=== PATIENT | male | born 1985 | race Caucasian/White ===

== ENCOUNTER 2022-02-24 15:30 | Outpatient (RCR) | payer MEDICAID, SELFPAY ==
--- NOTE | 2022-02-04 16:41 | HP.OTEVAL ---
Patient's Visit Information LAZ WOODS is a 36 year old M, referred to Occupational Therapy by LAURI TAVERAS, with a diagnosis of Lymphedema LE. Date of Evaluation: 02/04/22 Occupational Therapist: Mary Rivero, MURPHY/Gustavo, CHT - Subjective This 36 year old male was seen for OT eval with dx of lymphedema in right LE- pt states he developed swelling in his right LE about two years ago- pt states he has wears compression socks ( britney compression socks works the best for him) pt states he was given another medical compression sock but it was not helpful- pt states he was seen by a in [place] and was told he can not do much for his Leg- pt states he has had cellulitis about 4-5 months ago- was treated ER and given antibiotics- pt does not work-. pt states he did have a compression pump in the past but does not have it now due to his housing arrangement. - Objective Concerns: asked if this dx is something he could get disability for- - Lymphedema (Circumferential Measure) Mid-foot: right 26cm left 25cm Ankle: right 29cm left 27cm Lower calf: right 32.5 left 26cm Largest calf: rigth 43cm left 40cm Below knee: right 38cm left 37cm - Goals Demonstrate a 20% reduction in edema by d/c: Yes Demonstrate adequate knowledge of self-massage by 2nd week: Yes Demonstrate adequate knowledge skin care/prec by 2nd week: Yes Demonstrate adequate knowledge therapeutic exercises by d/c: Yes Select approp compression garment w/donning/care/wear by d/c: Yes Voice need to replace compression garment every 4-6mo by dc: Yes - Rehabilitation General Assessment: Pt arrives with copper fit compression sock on- demo with edema of right LE and demo need for skilled OT services 2-3 visits to ed. pt on life long mtg. of lymphedema. Today therapist ed. pt on skin care, precautions, lymph. stimulation exercise, self manual massage brien. and need of compression sock. Pt was given handout on exercise and demo. understanding- therapist advised compression sock 20-30 mmHg was appropriate pt states he did get order the person who went to pick them up was told that the pt. needs to get his leg measured- and was told they would cost about $50 dollars- pt has not went back to get measured- asked pt to call insurance and see if he can submit for reimbursement- notified pt that a lot of insurances do not pay for compression socks- due to the length of swelling and pts recent cellulitis about 4- 5 months ago pt would benefit from compression pumps. Rehabilitation Potential: Good - Anticipated Interventions Education re Diagnosis, Manual Lymph Drainage, Education re Life-long lymphedema Management, Education re Skin Care and Precautions, Education re Self Massage Techniques, Education re Correct Donning Tech,Care&Wearing Sched Comp Garments, Home Program - Visit Plan TEXT: Thank you for the opportunity to evaluate your patient. For Medicare and Medicare HMO plans, please review the plan of care and approve it. It will need to be FAXED BACK to us at [phone] for Medicare purposes. Please let me know if there are questions or concerns regarding this plan of care. Physician Signature: Date:
--- NOTE | 2022-02-04 16:42 | HP.OTEVAL ---
Patient's Visit Information LAZ WOODS is a 36 year old M, referred to Occupational Therapy by LAURI TAVERAS, with a diagnosis of Lymphedema LE. Date of Evaluation: 02/04/22 Occupational Therapist: Mary Rivero, MURPHY/Gustavo, CHT - Subjective This 36 year old male was seen for OT eval with dx of lymphedema in right LE- pt states he developed swelling in his right LE about two years ago- pt states he has wears compression socks ( britney compression socks works the best for him) pt states he was given another medical compression sock but it was not helpful- pt states he was seen by a in [place] and was told he can not do much for his Leg- pt states he has had cellulitis about 4-5 months ago- was treated ER and given antibiotics- pt does not work-. pt states he did have a compression pump in the past but does not have it now due to his housing arrangement. - Lymphedema (Circumferential Measure) Mid-foot: right 26cm left 25cm Ankle: right 29cm left 27cm Lower calf: right 32.5 left 26cm Largest calf: rigth 43cm left 40cm Below knee: right 38cm left 37cm - Lower Limb Functional Index Lower Extremity Functional Score: 76 - Goals Demonstrate a 20% reduction in edema by d/c: Yes Demonstrate adequate knowledge of self-massage by 2nd week: Yes Demonstrate adequate knowledge skin care/prec by 2nd week: Yes Demonstrate adequate knowledge therapeutic exercises by d/c: Yes Select approp compression garment w/donning/care/wear by d/c: Yes Voice need to replace compression garment every 4-6mo by dc: Yes - Rehabilitation General Assessment: Pt arrives with copper fit compression sock on- demo with edema of right LE and demo need for skilled OT services 2-3 visits to ed. pt on life long mtg. of lymphedema. Today therapist ed. pt on skin care, precautions, lymph. stimulation exercise, self manual massage brien. and need of compression sock. Pt was given handout on exercise and demo. understanding- therapist advised compression sock 20-30 mmHg was appropriate pt states he did get order the person who went to pick them up was told that the pt. needs to get his leg measured- and was told they would cost about $50 dollars- pt has not went back to get measured- asked pt to call insurance and see if he can submit for reimbursement- notified pt that a lot of insurances do not pay for compression socks- due to the length of swelling and pts recent cellulitis about 4- 5 months ago pt would benefit from compression pumps. Rehabilitation Potential: Good - Anticipated Interventions Education re Diagnosis, Manual Lymph Drainage, Education re Life-long lymphedema Management, Education re Skin Care and Precautions, Education re Self Massage Techniques, Education re Correct Donning Tech,Care&Wearing Sched Comp Garments, Home Program - Visit Plan TEXT: Thank you for the opportunity to evaluate your patient. For Medicare and Medicare HMO plans, please review the plan of care and approve it. It will need to be FAXED BACK to us at [phone] for Medicare purposes. Please let me know if there are questions or concerns regarding this plan of care. Physician Signature: Date:
--- NOTE | 2022-07-22 14:10 | HP.OT.NRP ---
LAZ Genny WOODS was seen in my office for initial evaluation on 02/04/22. The following Plan of Care was established for this patient: Plan: pt to get compression socks with his dr. rodriguez Anticipated Interventions: Education re Diagnosis, Manual Lymph Drainage, Education re Life-long lymphedema Management, Education re Skin Care and Precautions, Education re Self Massage Techniques, Education re Correct Donning Tech,Care&Wearing Sched Comp Garments, Home Program This patient was last seen in our office 02/24/22. Pertinent comments regarding their Occupational therapy will appear below: pt was seen for 2 OT visits-last apt pt was to get new compression socks with his order- no further apts scheduled pt d/c due to time lapse in services. At this point I will be discontinuing this patient from occupational therapy. I would be happy to see this patient again in the future if found appropriate by the physician. Thank you! Mary Rivero, OTR/L, CHT
== END 2022-02-24 19:00 | disposition home or self-care (01) ==
LOC: OT 15:30
DX: I89.0 Lymphedema, not elsewhere classified (principal)
CPT/HCPCS: 97166; 97530